=== PATIENT | female | born 1975 | race Caucasian/White ===

== ENCOUNTER 2019-09-03 04:20 | Emergency (ER) | payer BC ==
[2019-09-03] MEDS ORDERED: Sodium Chloride 0.9% 1000 ML 1,000 ML IV STA (05:10)
[2019-09-03] MEDS ORDERED: TORAdol 30 mg Injection IV ONE (05:10)
[2019-09-03] MEDS ORDERED: Zofran 4 MG/2 ML VIAL IV ONE (05:10)
--- NOTE | 2019-09-03 05:10 | ERPHSYRPT ---
- History of Present Illness Time Seen by Provider: 09/03/19 04:55 Historian: patient Exam Limitations: no limitations Patient Subjective Stated Complaint: pt states that yesterday morning she woke up with RLQ pain, pt states she went to work and tried to forget about the pain , pt states that she was sick to her stomach all day, pt states that she has had heartburn for the past 3 days, pt states that pain is radiating to rt flank , pt states that she woke up in the middle of the night due to the pain Triage Nursing Assessment: pt ambulated into the er, pt is axo x4, pt is grabbing RLQ, c/o pain 10/10 to RLQ, pain radiating to rt flank, tenderness with palpation to RLQ, hypoactive bowel sounds, clear lung and heart tones, hypertensive, pt declines taking any OTC for pain Timing/Duration: yesterday, sudden, worse Abdominal Pain Onset Location: RLQ Pain Radiation: flank (Right) Severity of Pain-Max: moderate Severity of Pain-Current: moderate Associated Symptoms: denies symptoms Previous symptoms: no prior history Allergies/Adverse Reactions: Iodinated Contrast Media Allergy (Severe, Verified 09/03/19 05:00) Tightness of Throat Home Medications: atenoloL [Atenolol] 25 mg PO DAILY 09/03/19 [History] hydroCHLOROthiazide [Hydrochlorothiazide] 12.5 mg PO DAILY 09/03/19 [History] Hx Tetanus, Diphtheria Vaccination/Date Given: No (unknown) Hx Influenza Vaccination/Date Given: No Hx Pneumococcal Vaccination/Date Given: No Travel Risk - International Travel Have you traveled outside of the country in past 3 weeks: No Have you or anyone close to you been diagnosed with or: No Do your reside in a community with a known COVID-19 case?: Yes If Yes where:: [place] - Coronavirus Screening Has patient experienced Coronavirus symptoms: No - Review of Systems Constitutional: No Symptoms Eyes: No Symptoms Ears, Nose, & Throat: No Symptoms Respiratory: No Symptoms Cardiac: No Symptoms Abdominal/Gastrointestinal: Abdominal Pain (Right lower quadrant), Nausea, No Vomiting, No Diarrhea Genitourinary Symptoms: Flank Pain (Right) Musculoskeletal: No Symptoms Skin: No Symptoms Neurological: No Symptoms Psychological: No Symptoms Endocrine: No Symptoms Hematologic/Lymphatic: No Symptoms Immunological/Allergic: No Symptoms All Other Systems: Reviewed and Negative - Past Medical History Pertinent Past Medical History: Yes Neurological History: No Pertinent History ENT History: No Pertinent History Cardiac History: Arrhythmia, Hypertension Respiratory History: No Pertinent History Endocrine Medical History: No Pertinent History Musculoskeletal History: No Pertinent History GI Medical History: No Pertinent History History: No Pertinent History Psycho-Social History: No Pertinent History Female Reproductive Disorders: No Pertinent History - Past Surgical History Past Surgical History: Yes Neuro Surgical History: No Pertinent History Cardiac: No Pertinent History Respiratory: No Pertinent History Gastrointestinal: Cholecystectomy Genitourinary: No Pertinent History Musculoskeletal: No Pertinent History Female Surgical History: Section, Tubal Ligation - Social History Smoking Status: Never smoker Exposure to second hand smoke: No Drug Use: none Patient Lives Alone: No - Female History Hx Now: No - Nursing Vital Signs Nursing Vital Signs: Initial Vital Signs Temperature 97.9 F 09/03/19 04:29 Pulse Rate 89 09/03/19 04:29 Respiratory Rate 13 09/03/19 04:29 Blood Pressure 161/90 09/03/19 04:29 O2 Sat by Pulse Oximetry 96 09/03/19 04:29 Pain Scale Pain Intensity 6 - Physical Exam General Appearance: moderate distress, alert, anxiety Eye Exam: PERRL/EOMI, eyes nml inspection Ears, Nose, Throat Exam: normal ENT inspection, moist mucous membranes Neck Exam: normal inspection, non-tender, supple, full range of motion Respiratory Exam: normal breath sounds, lungs clear, airway intact, No chest tenderness, No respiratory distress Cardiovascular Exam: regular rate/rhythm, normal heart sounds, normal peripheral pulses Gastrointestinal/Abdomen Exam: soft, normal bowel sounds, tenderness (Right lower quadrant), guarding (Right lower quadrant), No rebound Pelvic Exam: not done Rectal Exam: not done Back Exam: normal inspection, normal range of motion, No CVA tenderness, No vertebral tenderness Extremity Exam: normal inspection, normal range of motion, pelvis stable Neurologic Exam: alert, oriented x 3, cooperative, field counsel II-XII nml as tested Skin Exam: normal color, warm, dry Lymphatic Exam: No adenopathy SpO2 Interpretation: normal SpO2: 96 O2 Delivery: Room Air Ordered Tests: Active Orders 24 hr Category Date Time Status IV Insertion STAT Care 09/03/19 05:10 Active Isolation, Initiate & Maintain Q4H Care 09/03/19 04:58 Active ABDOMEN AND PELVIS W/0 CONTRAS [CT] Stat Exams 09/03/19 05:41 Taken AMYLASE Stat Lab 09/03/19 05:20 Completed CBC W DIFF Stat Lab 09/03/19 05:20 Completed CMP Stat Lab 09/03/19 05:20 Completed LIPASE Stat Lab 09/03/19 05:20 Completed Lactic Acid Stat Lab 09/03/19 05:55 Completed UA W/RFX UR CULTURE Stat Lab 09/03/19 05:20 Completed Medication Summary Generic Name Dose Route Start Last Admin Trade Name Freq PRN Reason Stop Dose Admin Hydromorphone HCl 1 mg 09/03/19 06:24 Hydromorphone 1 Mg/Ml Ampule IV 09/03/19 06:25 STAT ONE Discontinued Medications Generic Name Dose Route Start Last Admin Trade Name Freq PRN Reason Stop Dose Admin Sodium Chloride 1,000 mls @ 999 mls/hr 09/03/19 05:10 09/03/19 05:18 Sodium Chloride 0.9% 1000 Ml IV 09/03/19 06:10 999 mls/hr .Q1H1M STA Administration Sodium Chloride Confirm 09/03/19 05:13 Sodium Chloride 0.9% 1000 Ml Administered 09/03/19 05:14 Dose 1,000 mls @ ud .ROUTE .STK-MED ONE Ketorolac Tromethamine 30 mg 09/03/19 05:10 09/03/19 05:18 Toradol 30 Mg Injection IV 09/03/19 05:11 30 mg STAT ONE Administration Ketorolac Tromethamine Confirm 09/03/19 05:13 Toradol 30 Mg Injection Administered 09/03/19 05:14 Dose 30 mg .ROUTE .STK-MED ONE Ondansetron HCl 4 mg 09/03/19 05:10 09/03/19 05:18 Zofran 4 Mg/2 Ml Vial IV 09/03/19 05:11 4 mg STAT ONE Administration Ondansetron HCl Confirm 09/03/19 05:13 Zofran 4 Mg/2 Ml Vial Administered 09/03/19 05:14 Dose 4 mg .ROUTE .STK-MED ONE Lab/Rad Data: Laboratory Result Diagrams 09/03/19 05:20 09/03/19 05:20 Laboratory Results 09/03/19 09/03/1920 Range/Units 05:55 05:20 05:20 WBC (4.0-10.5) K/mm3 RBC (4.1-5.4) M/mm3 Hgb (12.0-16.0) gm/dl Hct (35-47) % MCV (78-100) fl MCH (26-32) pg MCHC (32-36) g/dl RDW (11.5-14.0) % Plt Count (150-450) K/mm3 MPV (7.5-11.0) fl Gran % (36.0-66.0) % Eos # (Auto) (0-0.5) Absolute Lymphs (auto) (1.0-4.6) Absolute Monos (auto) (0.0-1.3) Lymphocytes % (24.0-44.0) % Monocytes % (0.0-12.0) % Eosinophils % (0.00-5.0) % Basophils % (0.0-0.4) % Absolute Granulocytes (1.4-6.9) Basophils # (0-0.4) Sodium 137 (137-145) mmol/L Potassium 3.5 (3.5-5.1) mmol/L Chloride 101 (98-107) mmol/L Carbon Dioxide 25 (22-30) mmol/L Anion Gap 13.8 (5-15) MEQ/L BUN 9 (7-17) mg/dL Creatinine 0.65 (0.52-1.04) mg/dL Estimated GFR > 60.0 ML/MIN Glucose 123 H (74-106) mg/dL Lactic Acid 1.9 (0.4-2.0) Calcium 8.8 (8.4-10.2) mg/dL Total Bilirubin 0.70 (0.2-1.3) mg/dL AST 27 (14-36) U/L ALT 19 (0-35) U/L Alkaline Phosphatase 100 (38-126) U/L Serum Total Protein 8.3 H (6.3-8.2) g/dL Albumin 4.1 (3.5-5.0) g/dL Amylase 57 (30-110) U/L Lipase 99 (23-300) U/L Urine Color YELLOW (YELLOW) Urine Appearance SLIGHTLY CLOUDY (CLEAR) Urine pH 6.0 (5-6) Ur Specific [place] 1.015 (1.005-1.025) Urine Protein NEGATIVE (Negative) Urine Ketones NEGATIVE (NEGATIVE) Urine Blood SMALL (0-5) Jose Juan/ul Urine Nitrite NEGATIVE (NEGATIVE) Urine Bilirubin NEGATIVE (NEGATIVE) Urine Urobilinogen NEGATIVE (0-1) mg/dL Ur Leukocyte Esterase TRACE (NEGATIVE) Urine WBC (Auto) 3-5 (0-5) /HPF Urine RBC (Auto) 0-2 (0-2) /HPF U Epithel Cells (Auto) RARE (FEW) /HPF Urine Bacteria (Auto) NONE (NEGATIVE) /HPF Urine Mucus (Auto) SLIGHT (NEGATIVE) /HPF Urine Culture Reflexed NO (NO) Urine Glucose NEGATIVE (NEGATIVE) mg/dL 09/03/19 Range/Units 05:20 WBC 11.1 H (4.0-10.5) K/mm3 RBC 4.57 (4.1-5.4) M/mm3 Hgb 13.3 (12.0-16.0) gm/dl Hct 39.5 (35-47) % MCV 86.4 (78-100) fl MCH 29.1 (26-32) pg MCHC 33.7 (32-36) g/dl RDW 13.4 (11.5-14.0) % Plt Count 333 (150-450) K/mm3 MPV 10.6 (7.5-11.0) fl Gran % 76.1 H (36.0-66.0) % Eos # (Auto) 0.08 (0-0.5) Absolute Lymphs (auto) 1.68 (1.0-4.6) Absolute Monos (auto) 0.87 (0.0-1.3) Lymphocytes % 15.1 L (24.0-44.0) % Monocytes % 7.8 (0.0-12.0) % Eosinophils % 0.7 (0.00-5.0) % Basophils % 0.3 (0.0-0.4) % Absolute Granulocytes 8.48 H (1.4-6.9) Basophils # 0.03 (0-0.4) Sodium (137-145) mmol/L Potassium (3.5-5.1) mmol/L Chloride (98-107) mmol/L Carbon Dioxide (22-30) mmol/L Anion Gap (5-15) MEQ/L BUN (7-17) mg/dL Creatinine (0.52-1.04) mg/dL Estimated GFR ML/MIN Glucose (74-106) mg/dL Lactic Acid (0.4-2.0) Calcium (8.4-10.2) mg/dL Total Bilirubin (0.2-1.3) mg/dL AST (14-36) U/L ALT (0-35) U/L Alkaline Phosphatase (38-126) U/L Serum Total Protein (6.3-8.2) g/dL Albumin (3.5-5.0) g/dL Amylase (30-110) U/L Lipase (23-300) U/L Urine Color (YELLOW) Urine Appearance (CLEAR) Urine pH (5-6) Ur Specific [place] (1.005-1.025) Urine Protein (Negative) Urine Ketones (NEGATIVE) Urine Blood (0-5) Jose Juan/ul Urine Nitrite (NEGATIVE) Urine Bilirubin (NEGATIVE) Urine Urobilinogen (0-1) mg/dL Ur Leukocyte Esterase (NEGATIVE) Urine WBC (Auto) (0-5) /HPF Urine RBC (Auto) (0-2) /HPF U Epithel Cells (Auto) (FEW) /HPF Urine Bacteria (Auto) (NEGATIVE) /HPF Urine Mucus (Auto) (NEGATIVE) /HPF Urine Culture Reflexed (NO) Urine Glucose (NEGATIVE) mg/dL - Progress Progress: unchanged, pain not gone completely, re-examined Progress Note: 09/03/19 06:28 CAT scan of the abdomen and pelvis without contrast reveals no acute intra- abdominal findings. The appendix is visualized and is normal per radiologist. The tubes and ovaries are visualized and are unremarkable. There is no renal stones or hydronephrosis or ureteral stones present. Counseled pt/family regarding: lab results, diagnosis, need for follow-up, rad results - Departure Departure Disposition: Home Clinical Impression: Abdominal pain Condition: Stable Critical Care Time: No Referrals: NEAL RINALDI [Primary Care Provider] - Additional Instructions: Add ibuprofen for pain. 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 Prescriptions: Hydrocodone/APAP 5/325 [[place] 5/325 mg] 1 each PO Q8H PRN PRN #6 tablet MDD 3 PRN Reason: Pain
[2019-09-03] MEDS ORDERED: Zofran 4 MG/2 ML VIAL ONE (05:13)
[2019-09-03] MEDS ORDERED: Sodium Chloride 0.9% 1000 ML 1,000 ML ONE (05:13)
[2019-09-03] MEDS ORDERED: TORAdol 30 mg Injection ONE (05:13)
[2019-09-03 05:37] LABS: Absolute Neutrophil Ct (ANC) 8.48 (1.4-6.9); BASOPHIL % 0.3 % (0.0-0.4); Basophil (Absolute #) 0.03 (0-0.4); Eosinophil % 0.7 % (0.00-5.0); Eosinophil (Absolute #) 0.08 (0-0.5); Hematocrit 39.5 % (35-47); Hemoglobin 13.3 gm/dl (12.0-16.0); Lymphocyte (Absolute #) 1.68 (1.0-4.6); Lymphocytes % 15.1 % (24.0-44.0); Mean Cell Volume 86.4 fl (78-100); Mean Corpuscular Hemoglobin 29.1 pg (26-32); Mean Corpuscular Hgb Concent. 33.7 g/dl (32-36); Mean Platelet Volume 10.6 fl (7.5-11.0); Monocyte (Absolute #) 0.87 (0.0-1.3); Monocytes % 7.8 % (0.0-12.0); Neutrophil % 76.1 % (36.0-66.0); Platelet Count 333 K/mm3 (150-450); Red Blood Count 4.57 M/mm3 (4.1-5.4); Red Cell Distribution Width 13.4 % (11.5-14.0); White Blood Count 11.1 K/mm3 (4.0-10.5)
[2019-09-03 05:42] LABS: Appearance SLIGHTLY CLOUDY (CLEAR); Bilirubin NEGATIVE (NEGATIVE); Blood SMALL Ery/ul (0-5); Epithelial Cells RARE /HPF (FEW); Glucose NEGATIVE (NEGATIVE); Ketones NEGATIVE (NEGATIVE); Leukocyte Esterase TRACE (NEGATIVE); Mucus SLIGHT /HPF (NEGATIVE); Nitrite NEGATIVE (NEGATIVE); Protein,Urine Dip NEGATIVE (Negative); RBC 0-2 /HPF (0-2); Specific Gravity 1.015 (1.005-1.025); Urobilinogen NEGATIVE mg/dL (0-1)
[2019-09-03 05:49] LABS: ALBUMIN 4.1 g/dL (3.5-5.0); ALKALINE PHOSPHATASE 100 U/L (38-126); AMYLASE 57 U/L (30-110); ANION GAP 13.8 MEQ/L (5-15); BLOOD UREA NITROGEN 9 mg/dL (7-17); CHLORIDE 101 mmol/L (98-107); Calcium 8.8 mg/dL (8.4-10.2); Carbon Dioxide 25 mmol/L (22-30); Creatinine 1 0.65 mg/dL (0.52-1.04); Glucose 123 mg/dL (74-106); LIPASE 99 U/L (23-300); Potassium 3.5 mmol/L (3.5-5.1); SGOT/AST 27 U/L (14-36); SGPT/ALT 19 U/L (0-35); SODIUM 137 mmol/L (137-145); Total Protein 8.3 g/dL (6.3-8.2)
[2019-09-03] MEDS ORDERED: Hydromorphone 1 mg/ml Ampule IV ONE (06:24)
[2019-09-03] MEDS ORDERED: Hydromorphone 1 mg/ml Ampule ONE (06:39)
[2019-09-03 06:54] VITALS: BP 147/86; PULSE 79; O2SAT 95
--- NOTE | 2019-09-03 09:18 | XRAY ---
Indication: Right flank/right lower quadrant pain. Multiple contiguous axial images obtained through the abdomen and pelvis without contrast using renal stone protocol. Comparison: September 27, 2016. Lung bases demonstrates minimal bilateral dependent atelectasis without infiltrate or effusion. Heart is not enlarged. No renal calculus or evidence for obstructive uropathy in either system. Noncontrasted stomach and bowel loops appear nonobstructed. Normal appendix. Again minimal scattered descending and sigmoid diverticulosis without diverticulitis. Again previous cholecystectomy. No free fluid/air. Spleen remains enlarged today measuring 13 cm. Stable mild fatty hepatomegaly today measuring 20.5 cm. Remaining liver, pancreas, spleen, adrenal glands, kidneys, ureters, bladder, uterus, and aorta appear unremarkable for noncontrast exam. Osseous structures intact with stable mild multilevel degenerative spondylosis and left L5 spondylolysis with grade 1 spondylolisthesis. Impression: 1. Negative renal calculus or evidence for obstructive uropathy. 2. Stable colonic diverticulosis, fatty liver, hepatosplenomegaly, and chronic bony findings. 3. Remaining CT abdomen/pelvis without contrast exam is negative. Comment: Preliminary interpretation was made by [facility]. No critical discrepancy.
== END 2019-09-03 07:00 | disposition home or self-care (01) ==
LOC: ED 04:20
DX: R10.31 Right lower quadrant pain (principal)
CPT/HCPCS: 36000; 36415; 74176; 80053; 81001; 82150; 83605; 83690; 85025; 96360; 96374; 96375; 99284; J1170; J1885; J2405

== ENCOUNTER 2022-10-15 09:58 | Emergency (ER) | payer OTHER ==
[2022-10-15 10:33] VITALS: BP 124/83; PULSE 66; O2SAT 96
--- NOTE | 2022-10-15 11:56 | ERPHSYRPT ---
- History of Present Illness Time Seen by Provider: 10/15/22 11:10 Source: patient, diplomatic interpreter/translator Patient Subjective Stated Complaint: pt had left foot surgery 6 weeks ago for metatarsasabductus and breaks her bones in her joo feet frequently and she was walking in her house yesterday and she felt a "pop" in her left foot and the top of it filled with fluid and so she is here for an x-ray to see if it is broke again Triage Nursing Assessment: Pt brought self to the ER, vitals wnl, rates pain as 6/10, left foot swollen, pulses normal, skin n/w/d, states that the pain is throbbing pain, pt has neuropathy in her feet and tarsal tunnel and metatarsasabductus, pt walked to the room with a limp Physician History: 47 years old female with 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 Since then she is having moderate intensity sharp pain with ambulation and better with resting. Does report some swelling around the first second and third metatarsal distally. Intact range of motion of the toes. Does have history of peripheral neuropathy and had broken bone in the past which went undiagnosed. Patient wants to have x-rays done. Method of Injury: other Occurred: yesterday Quality: sharpness Severity of Pain-Max: moderate Severity of Pain-Current: mild Lower Extremities Pain: foot: left Modifying Factors: Improves With: immobilization. Worsens With: movement Associated Symptoms: popping sensation Allergies/Adverse Reactions: Iodinated Contrast Media Allergy (Severe, Verified 10/15/22 10:33) Tightness of Throat Home Medications: atenoloL [Atenolol] 25 mg PO DAILY 09/03/19 [History] Furosemide [Lasix] 20 mg PO DAILY 10/15/22 [History] Gabapentin 1,200 mg PO TID 10/15/22 [History] Levothyroxine Sodium 88 mcg PO DAILY 10/15/22 [History] Lisinopril/Hydrochlorothiazide [Lisinopril-Hctz 10-12.5 mg Tab] 1 each PO DAILY 10/15/22 [History] Meloxicam 15 mg [Meloxicam 15 MG] 15 mg PO DAILY 10/15/22 [History] Potassium Chloride 10 meq PO DAILY 10/15/22 [History] Hx Tetanus, Diphtheria Vaccination/Date Given: No (unknown) Hx Influenza Vaccination/Date Given: No Hx Pneumococcal Vaccination/Date Given: No Travel Risk - International Travel Have you traveled outside of the country in past 3 weeks: No - Coronavirus Screening Are you exhibiting any of the following symptoms?: No Close contact with a COVID-19 positive Pt in past 14-21 Days: No - Vaccine Status Have you recieved a Covid-19 vaccination: No - Review of Systems Constitutional: No Symptoms Eyes: No Symptoms Respiratory: No Symptoms Cardiac: No Symptoms Abdominal/Gastrointestinal: No Symptoms Musculoskeletal: Injury, Joint Pain, Joint Swelling Skin: No Symptoms Neurological: No Symptoms - Past Medical History Pertinent Past Medical History: Yes Neurological History: Peripheral Neuropathy ENT History: No Pertinent History Cardiac History: Arrhythmia, Hypertension Respiratory History: No Pertinent History Endocrine Medical History: Hypothyroidism Musculoskeletal History: Fractures, Osteoarthritis GI Medical History: No Pertinent History History: No Pertinent History Psycho-Social History: No Pertinent History Female Reproductive Disorders: No Pertinent History Other Medical History: PT TO HAVE A SCAN OF HER BRAIN DUE TO HAVING "SPELLS". DOCTOR THINKS IT MAY BE SEIZURES. SHE IS TO SEE A NEUROLOGIST. FATTY LIVER. PT HAS EXTRA BEATS OF THE HEART. 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 - Past Surgical History Past Surgical History: Yes Neuro Surgical History: No Pertinent History Cardiac: No Pertinent History Respiratory: No Pertinent History Gastrointestinal: Cholecystectomy Genitourinary: No Pertinent History Musculoskeletal: No Pertinent History Female Surgical History: Tubal Ligation, Section - Social History Smoking Status: Never smoker Exposure to second hand smoke: No Drug Use: none Patient Lives Alone: No - Female History Hx Last Menstrual Period: 10/12/2022 Hx Now: No - Nursing Vital Signs Nursing Vital Signs: Initial Vital Signs Temperature 97.7 F 10/15/22 10:16 Pulse Rate 66 10/15/22 10:16 Blood Pressure 124/83 10/15/22 10:16 O2 Sat by Pulse Oximetry 96 10/15/22 10:16 Pain Scale Pain Intensity 6 - Physical Exam General Appearance: no apparent distress, alert Eyes, Ears, Nose, Throat Exam: normal ENT inspection Neck Exam: normal inspection, full range of motion Cardiovascular/Respiratory Exam: normal breath sounds, regular rate/rhythm Ankle Exam: bilateral ankle: non-tender, normal inspection, normal range of motion, no evidence of injury Foot Exam: right foot: non-tender, normal inspection, normal range of motion, no evidence of injury, left foot: bone tenderness (Distal first second and third metatarsal with some swelling on top.), pain, soft tissue tenderness, swelling Neuro/Tendon Exam: normal sensation, normal tendon functions Mental Status Exam: alert, oriented x 3, cooperative SpO2 Interpretation: normal SpO2: 96 O2 Delivery: Room Air Ordered Tests: Active Orders 24 hr Category Date Time Status FOOT (MINIMUM 3 VIEWS) Stat Exams 10/15/22 11:20 Taken - Progress Progress: unchanged Progress Note: 10/15/22 11:55 47 years old female with 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 Since then she is having moderate intensity sharp pain with ambulation and better with resting. Does report some swelling around the first second and third metatarsal distally. Intact range of motion of the toes. Does have history of peripheral neuropathy and had broken bone in the past which went undiagnosed. Patient wants to have x-rays done. . She is offered pain medications which she declined. X-rays are negative for any acute fracture dislocation reviewed by me, official report is pending. Patient does have old fourth and fifth metatarsal base fracture. Patient is not tender in that area. I have recommended her to use walking boot and outpatient follow-up with her fiber heel piece shaper in [place]. Discussed signs symptoms of worsening needing return to ER which she seems understanding. Counseled pt/family regarding: diagnosis, need for follow-up, rad results Medical Desision Making - Diagnostic Testing Radiological Interpretation: Interpreted by me, Reviewed by me - Departure Departure Disposition: Home Clinical Impression: Acute pain of left foot Condition: Stable Critical Care Time: No Referrals: NEAL RINALDI [Primary Care Provider] - Follow up with PCP 2 days Instructions: Foot Fracture (DC), Foot Sprain (DC) Additional Instructions: Take pain medications which you have at home as recommended. Use walking boot all the time. Follow-up with your fiber heel piece shaper for reevaluation early next week. Return to ER for any worsening.
--- NOTE | 2022-10-15 21:05 | XRAY ---
Indication: Pain. No known injury. Comparison: December 13, 2021 3 nonweight bearing views left foot unchanged again demonstrating mild pes planus, small heel spurs, and small navicular accessory ossicles. No new/acute abnormalities.
== END 2022-10-15 12:12 | disposition home or self-care (01) ==
LOC: ED 09:58
DX: M79.672 Pain in left foot (principal); Z87.81 Personal history of (healed) traumatic fracture; I10 Essential (primary) hypertension; G62.9 Polyneuropathy, unspecified; Z79.899 Other long term (current) drug therapy; Z28.310 Unvaccinated for COVID-19
CPT/HCPCS: 73630; 99282